=== PATIENT | male | born 1940 | race African-American/Black ===

== ENCOUNTER 2021-05-27 10:12 | Emergency (ER) | payer MEDICARE, MEDICAID ==
[~2021-05-27 10:12] MED LIST: Dextrose 5% in Water 1,000 ML BAG ONE; Norepinephrine 4 MG/4 ML VIAL ONE
[2021-05-27] MEDS ORDERED: Sodium Chloride 0.9% 1,000 ML ONE ×2 (11:09→12:39)
[2021-05-27 12:21] LABS: #Lymphocytes 1.1 thou/uL (1.20-3.40); #Monocytes 0.2 thou/uL (0.11-0.59); #Neutrophils 8.6 thou/uL (1.40-6.50); %Basophils 0.3 % (0.0-1.0); %Monocytes 1.6 % (0.0-10.0); %Neutrophils 87.2 % (42.0-75.0); Anisocytosis SLIGHT = 6-15 cells (100X) (0-5/hpf); Hemoglobin 10.9 g/dL (14.0-18.0); Hypochromia SLIGHT = 6-15 cells (100X) (0-5/hpf); MDiff Complete? YES; Mean Corpuscular HGB CONC 29.2 g/dL (32.0-36.0); Mean Corpuscular Hemoglobin 27.4 pg (27.0-31.0); Mean Corpuscular Volume 93.8 fL (78.0-98.0); Mean Platelet Volume 6.1 fL (7.4-10.4); Platelet Count 288 thou/uL (130-400); Platelet Morphology Comment Appears Adequate; RBC Distribution Width 16.3 % (11.5-14.5); Red Blood Cell (RBC) Count 3.96 mill/uL (4.70-6.10); White Blood Cell (WBC) Count 9.9 thou/uL (4.8-10.8)
[2021-05-27 12:26] LABS: ALT (SGPT) 31 U/L (8-55); AST (SGOT) 59 U/L (5-34); Albumin 3.1 g/dL (3.4-4.8); Alkaline Phosphatase 81 U/L (40-110); Anion Gap 22 mmol/L (10-20); BUN (Urea Nitrogen) 83 mg/dL (8.4-25.7); Bilirubin, Total 0.5 mg/dL (0.2-1.2); Calc. Creatinine Clearance 0 mL/min (70-130); Calcium 9.5 mg/dL (7.8-10.44); Carbon Dioxide 20 mmol/L (23-31); Chloride 135 mmol/L (98-107); Globulin 5.1 g/dL (2.4-3.5); Glucose 202 mg/dL (83-110); Potassium 5.3 mmol/L (3.5-5.1); Protein, Total 8.2 g/dL (5.8-8.1); Sodium 172 mmol/L (136-145)
[2021-05-27 12:39] LABS: Bilirubin Small (Negative); Blood, Urine Moderate (Negative); Glucose, Urine (Dipstick) Negative (Negative); Ketone, Urine Negative (Negative); Leukocyte Small (Negative); Nitrite Negative (Negative); Protein, Urine (Dipstick) > or equal to 300 mg/dL (Neg-Trace); Specific Gravity, Urine 1.015 (1.005-1.030)
[2021-05-27] MEDS ORDERED: Sodium Chloride 0.9% 100 ML ONE (12:39)
[2021-05-27] MEDS ORDERED: Cefepime 2 GM VIAL ONE (12:39)
[2021-05-27 12:42] LABS: Clarity Slightly Cloudy (Clear); pH, Urine Greater/Equal 9.0 (5.0-9.0)
[2021-05-27 12:45] LABS: WBC/HPF Greater Than 50 HPF (0-3)
[2021-05-27 12:46] LABS: Bacteria/HPF 4+ HPF (None Seen)
[2021-05-27 12:52] LABS: CKMB 8.7 ng/mL (0-6.6)
[2021-05-27 13:14] LABS: SARS-CoV-2 NAA Rapid Test DETECTED (NotDetected)
[2021-05-27] MEDS ORDERED: Sodium Chloride 0.9% 250 ML 500 ML ONE (13:41)
[2021-05-27] MEDS ORDERED: Dextrose 5% in Water 1,000 ML ONE (13:42)
[2021-05-27] MEDS ORDERED: Vancomycin HCl 750 MG VIAL ONE (13:47)
[2021-05-27] MEDS ORDERED: Acetaminophen 650 MG Suppository ONE (13:58)
[2021-05-27] MEDS ORDERED: Norepinephrine 4 MG/4 ML VIAL ONE (14:13)
== END 2021-05-27 14:34 | disposition short-term general hospital (02) ==
LOC: MADERS 10:12
DX: A41.9 Sepsis, unspecified organism (principal); E86.0 Dehydration; R79.89 Other specified abnormal findings of blood chemistry; E87.0 Hyperosmolality and hypernatremia; N39.0 Urinary tract infection, site not specified; N28.9 Disorder of kidney and ureter, unspecified; M10.9 Gout, unspecified; E78.5 Hyperlipidemia, unspecified; E11.9 Type 2 diabetes mellitus without complications; I10 Essential (primary) hypertension; F17.210 Nicotine dependence, cigarettes, uncomplicated; Z79.899 Other long term (current) drug therapy; Z79.84 Long term (current) use of oral hypoglycemic drugs
CPT/HCPCS: 36416; 51701; 71045; 80053; 81003; 81015; 82553; 83605; 84443; 84484; 85025; 85379; 87040; 93005; 96365; 96367; 96374; 36415-59; J0692; J3370; J3490; J7050; J7070; U0002